=== PATIENT | female | born 1945 | race Caucasian/White ===

== ENCOUNTER 2018-08-10 02:48 | Emergency (ER) | payer MEDICARE, OTHER ==
[~2018-08-10] VITALS: Ht 154.9 cm; Wt 56.7 kg
[2018-08-10] MEDS ORDERED: OMEPRAZOLE MAGN20 MG PO (03:04)
[2018-08-10] MEDS ORDERED: Inderal80 MG PO (03:05)
[2018-08-10] MEDS ORDERED: METPHE10 PO (03:05)
[2018-08-10] MEDS ORDERED: MECL12.5 PO (03:06)
[2018-08-10] MEDS ORDERED: ALPR1 PO (03:06)
== END 2018-08-10 05:31 | disposition home or self-care (01) ==
LOC: ER 02:48
DX: G47.411 Narcolepsy with cataplexy (principal); Z88.8 Allergy status to other drugs, medicaments and biological substances; Z79.899 Other long term (current) drug therapy
CPT/HCPCS: 96360; 99284-25; J7030